=== PATIENT | female | born 1950 | race African-American/Black ===

== ENCOUNTER 2017-08-24 14:51 | Emergency (ER) | payer OTHER ==
[2017-08-24 14:57] VITALS: BP 117/77; PULSE 106; TEMP 98.1; BMI 27.7
[2017-08-24] MEDS ORDERED: IBUPROFEN 600 MG TABLET (FP) PO ONE (15:15)
[2017-08-24] MEDS ORDERED: IBUPROFEN 400 MG TABLET (FP) PO ONE (15:18)
--- NOTE | 2017-08-24 15:37 | PDOC ---
History of Present Illness - General Chief Complaint: Respiratory Stated Complaint: BACK PAIN Time Seen by Provider: 08/24/17 15:01 History Source: Patient Exam Limitations: No Limitations - History of Present Illness Initial Comments: 08/24/17 15:32 67-year-old female presents the ED with complaints of subjective fever for the past 2 days along with cough, headache, sore throat and myalgia. Patient states took nothing for the above except for Motrin which she took this morning at 8 AM. Patient denies recent travel, recent sick contacts, recent illness. Timing/Duration: reports: yesterday Severity: reports: moderate Possible Cause: Yes: no prior episodes Associated Symptoms: reports: cough, fever/chills, headache, muscle aches, sore throat Past History - Travel Traveled outside of the country in the last 30 days: No - Past Medical History Allergies/Adverse Reactions: Allergies Allergy/AdvReac Type Severity Reaction Status Date / Time codeine Allergy Verified 08/24/17 15:21 Home Medications: Ambulatory Orders Aspirin 81 mg PO ASDIR 08/24/17 Omeprazole 20 mg PO ASDIR 08/24/17 propRANOLol HCL [Inderal -] 10 mg PO ASDIR 08/24/17 COPD: No GI Disorders: Yes (GASTRITIES) - Suicide/Smoking/Psychosocial Hx Smoking History: Never smoked Hx Alcohol Use: No Patient Lives Alone: No Lives with/in: niece Review of Systems - Review of Systems Able to Perform ROS?: Yes Constitutional: Yes: Chills, Fever HEENTM: Yes: Throat Pain Respiratory: Yes: Cough Cardiac (ROS): No: Symptoms Reported ABD/GI: No: Symptoms Reported : No: Symptoms Reported Musculoskeletal: Yes: Back Pain, Joint Pain (generalized) Integumentary: No: Symptoms Reported Neurological: Yes: Headache *Physical Exam - Vital Signs Last Vital Signs Temp Pulse Resp BP Pulse Ox 98.1 F 106 H 20 117/77 20 L 08/24/17 14:54 08/24/17 14:54 08/24/17 14:54 08/24/17 14:54 08/24/17 14:54 - Physical Exam General Appearance: Yes: Nourished, Appropriately Dressed. No: Apparent Distress HEENT: positive: EOMI, REINA, TMs Normal, Pharyngeal Erythema (mild). negative: Hearing Decreased Neck: positive: Supple. negative: Lymphadenopathy (R), Lymphadenopathy (L) Respiratory/Chest: positive: Rhonchi (right lower base). negative: Respiratory Distress, Accessory Muscle Use Cardiovascular: positive: Regular Rhythm, Tachycardia. negative: Murmur Gastrointestinal/Abdominal: positive: Soft. negative: Tenderness Extremity: positive: Normal Capillary Refill. negative: Pedal Edema Integumentary: positive: Normal Color, Warm, Moist Neurologic: positive: Motor Strength 5/5 (ambulatory) ED Treatment Course - ADDITIONAL ORDERS Additional order review: 08/24/17 15:15 Group A Strep Rapid Antigen - Final Throat - RADIOLOGY Radiology Studies Ordered: Category Date Time Status CHEST PA & LAT [RAD] Stat Radiology 08/24/17 15:15 Ordered - Medications Given in the ED: ED Medications Discontinued Medications Generic Name Dose Route Start Last Admin Trade Name Freq PRN Reason Stop Dose Admin Ibuprofen 400 mg 08/24/17 15:15 08/24/17 15:20 Motrin - PO 08/24/17 15:16 400 mg ONCE ONE Administration Medical Decision Making - Medical Decision Making 08/24/17 15:34 Patient here for URI complaints. Patient on exam with right lower lobe ronchi concerning for pneumonia. Patient also ordered for rapid strep secondary to pharyngeal erythema and Motrin for myalgia 08/24/17 15:35 X-ray shows right lower lobe consolidation concerning for pneumonia. Patient strep negative. Patient be discharged home with Levaquin. *DC/Admit/Observation/Transfer Diagnosis at time of Disposition: Right lower lobe pneumonia - Discharge Dispostion Disposition: HOME Condition at time of disposition: Good - Referrals Referrals: Mar Lizama MD [Primary Care Provider] - - Patient Instructions Printed Discharge Instructions: DI for Pneumonia -- Adult Additional Instructions: Please take Levaquin as prescribed until completed. May take Tylenol or Motrin for fever and discomfort. Please return to ED if symptoms worsen despite above recommendations. Otherwise up with your primary care physician. - Post Discharge Activity
== END 2017-08-24 15:44 | disposition home or self-care (01) ==
LOC: JERFT 14:51
DX: J18.9 Pneumonia, unspecified organism (principal)
CPT/HCPCS: 71046-TC-FY; 87070; 87077; 87430; 99281-25

== ENCOUNTER → 2022-02-06 | Day surgery (SDC) | payer OTHER | END | disposition home or self-care (01) | LOC: JRADUS-SUR 10:23 | PROVIDERS: ATTEND Surgery | PROC: 0H9T3ZX Drainage of Right Breast, Percutaneous Approach, Diagnostic (ICD-10-PCS; principal; 2022-02-06) | DX: N63.10 Unspecified lump in the right breast, unspecified quadrant (principal); D24.1 Benign neoplasm of right breast | CPT/HCPCS: 19083; 77065-TC; 87899; 88305-TC; A4648 ==

== ENCOUNTER 2022-12-03 04:29 | Day surgery (SDC) | payer OTHER ==
[2022-12-02 09:28] VITALS: BMI 30.2
[2022-12-03 13:58] VITALS: TEMP 97.4
[2022-12-03 14:29] VITALS: BP 139/86; PULSE 73; RESP 17
== END 2022-12-03 14:46 | disposition home or self-care (01) ==
LOC: JASU-ENDO 04:29
PROVIDERS: ATTEND Student in an Organized Health Care Education/Training Program
PROC: 0DB78ZX Excision of Stomach, Pylorus, Via Natural or Artificial Opening Endoscopic, Diagnostic (ICD-10-PCS; 2022-12-03)
PROC: 0DB68ZX Excision of Stomach, Via Natural or Artificial Opening Endoscopic, Diagnostic (ICD-10-PCS; 2022-12-03)
PROC: 0DB48ZX Excision of Esophagogastric Junction, Via Natural or Artificial Opening Endoscopic, Diagnostic (ICD-10-PCS; principal; 2022-12-03 14:00)
DX: K21.00 Gastro-esophageal reflux disease with esophagitis, without bleeding (principal); K29.50 Unspecified chronic gastritis without bleeding; I10 Essential (primary) hypertension; E11.9 Type 2 diabetes mellitus without complications
CPT/HCPCS: 88305-TC; 88342-TC

== ENCOUNTER 2023-07-12 01:52 | Inpatient (IN) | payer OTHER ==
[2023-07-12 02:04] VITALS: BMI 29.2
[2023-07-12] MEDS ORDERED: ASPIRIN 81 MG CHEWABLE TABLETS PO ONE ×2 (02:30→03:43)
[2023-07-12] MEDS ORDERED: FAMOTIDINE 20 MG TABLET PO ONE (02:43)
[2023-07-12] MEDS ORDERED: ACETAMINOPHEN 1000 MG/100 ML BAG IVPB ONE (02:43)
[2023-07-12 02:46] LABS: BASO % 0.7 % (0-2.0); EOS % 0.2 % (0-4.5); HEMATOCRIT 38.5 % (32.4-45.2); HEMOGLOBIN 12.4 GM/dL (10.7-15.3); LYMPH % 42.3 % (8-40); MCHC 32.2 g/dl (32.0-36.0); MEAN CELL VOLUME 80.8 fl (80-96); MEAN PLT VOLUME 7.7 fl (7.5-11.1); MONO % 11.3 % (3.8-10.2); NEUT % 45.5 % (42.8-82.8); PLATELET COUNT 352 10^3/uL (134-434); RBC 4.77 M/mm3 (3.60-5.2); RDW 14.2 % (11.6-15.6); WHITE BLOOD COUNT 4.7 K/mm3 (4.0-10.0)
[2023-07-12] MEDS ORDERED: FAMOTIDINE 20 MG TABLET ONE (02:48)
[2023-07-12] MEDS ORDERED: ACETAMINOPHEN INJECTION 100 ML IVPB ONE (02:48)
[2023-07-12 03:05] LABS: INR 0.99 (0.83-1.09); PROTHROMBIN TIME (PATIENT) 11.5 SEC (9.7-13.0)
[2023-07-12 03:08] LABS: ACTIVATED PTT 26.8 SECONDS (25.2-36.5); CHLORIDE 106 mmol/L (98-107); POTASSIUM 3.9 mmol/L (3.5-5.1); SODIUM 142 mmol/L (136-145)
[2023-07-12 03:10] LABS: BLOOD UREA NITROGEN 26.4 mg/dL (7-18); CALCIUM 9.9 mg/dL (8.5-10.1)
[2023-07-12 03:11] LABS: ALBUMIN 3.5 g/dl (3.4-5.0); ANION GAP 7 mmol/L (4-13); CO2 30 mmol/L (21-32); GLUCOSE,RANDOM 117 mg/dL (74-106); MAGNESIUM 1.9 mg/dL (1.8-2.4)
[2023-07-12 03:14] LABS: CREATININE 0.6 mg/dL (0.55-1.3); SGOT/AST 62 U/L (15-37); SGPT/ALT 43 U/L (13-61)
[2023-07-12 03:15] LABS: BILIRUBIN,TOTAL 0.2 mg/dL (0.2-1); TOT PROT 7.6 g/dl (6.4-8.2)
[2023-07-12 03:17] LABS: ALK PHOS 108 U/L (45-117)
[2023-07-12] MEDS ORDERED: CEFTRIAXONE 1 GM in DEXTROSE 5%-WATER - 100 ML IVPB ONE (03:40)
[2023-07-12] MEDS ORDERED: SODIUM CHLORIDE 0.9% 500 ML INFUS.BAG IV ONE (03:41)
[2023-07-12] MEDS ORDERED: ASPIRIN 81 MG CHEWABLE TABLETS ONE (04:32)
[2023-07-12] MEDS ORDERED: CEFTRIAXONE 1 GM/50 ML BAG ONE (04:32)
[2023-07-12] MEDS ORDERED: ACETAMINOPHEN 325 MG TABLET (FP) PO PRN (06:16)
[2023-07-12] MEDS ORDERED: ATORVASTATIN CA 40 MG TABLET (FP) PO ONE (06:17)
[2023-07-12 07:50] LABS: CHOLESTEROL 157 mg/dL (50-200)
[2023-07-12 07:51] LABS: LDL CHOLESTEROL (ONLY SJRH) 77 mg/dL (5-100)
[2023-07-12] MEDS ORDERED: METOPROLOL TARTRATE 25 MG TABLET (FP) PO ONE (07:52)
[2023-07-12 07:53] LABS: HDL CHOLESTEROL 65 mg/dL (40-60)
[2023-07-12] MEDS ORDERED: CLOPIDOGREL BISULFATE 300 MG TABLET PO ONE (07:53)
[2023-07-12] MEDS ORDERED: HEPARIN NA (PORCINE) 5,000 UNITS/ML 1ML VIAL IVPUSH ONE (07:55)
[2023-07-12] MEDS ORDERED: HEPARIN NA (PORCINE) 5,000 UNITS/ML 1ML VIAL IVPUSH PRN ×2 (07:55)
[2023-07-12] MEDS ORDERED: HEPARIN INFUSION - 25,000 UNITS/500 ML INFUS.BAG IVPB SCH (08:00)
[2023-07-12] MEDS ORDERED: HEPARIN INFUSION - 25,000 UNITS/500 ML INFUS.BAG IVPB ONE (08:33)
[2023-07-12] MEDS ORDERED: HEPARIN NA (PORCINE) 5,000 UNITS/ML 1ML VIAL ONE (08:33)
[2023-07-12] MEDS ORDERED: OSELTAMIVIR PHOSPHATE 75 MG CAPSULE PO SCH (10:00)
[2023-07-12] MEDS ORDERED: METOPROLOL TARTRATE 25 MG TABLET (FP) ONE (10:03)
[2023-07-12] MEDS ORDERED: CLOPIDOGREL BISULFATE 300 MG TABLET ONE (10:04)
[2023-07-12] MEDS ORDERED: ATORVASTATIN CA 40 MG TABLET (FP) ONE (10:04)
[2023-07-12 10:14] VITALS: BP 130/89; PULSE 106; RESP 18
[2023-07-12] MEDS ORDERED: OSELTAMIVIR PHOSPHATE 75 MG CAPSULE ONE (10:24)
[2023-07-12 11:06] VITALS: TEMP 97.9
[2023-07-13] MEDS ORDERED: AZITHROMYCIN IVPB 500 MG/250 ML BAG IVPB SCH (10:00)
[2023-07-13] MEDS ORDERED: CEFTRIAXONE 1 GM in DEXTROSE 5%-WATER - 50 ML IVPB SCH (10:00)
[2023-07-13] MEDS ORDERED: ASPIRIN 81 MG CHEWABLE TABLETS PO SCH (10:00)
[2023-07-13] MEDS ORDERED: ATORVASTATIN CA 40 MG TABLET (FP) PO SCH (22:00)
== END 2023-07-12 11:08 | disposition short-term general hospital (02) | DRG 282 ==
LOC: JER 01:52 → JERBED 05:03
PROVIDERS: ADMIT Internal Medicine; ATTEND Internal Medicine
DX: I21.4 Non-ST elevation (NSTEMI) myocardial infarction (principal); J11.1 Influenza due to unidentified influenza virus with other respiratory manifestations; I10 Essential (primary) hypertension; F17.210 Nicotine dependence, cigarettes, uncomplicated
CPT/HCPCS: 0241U-QW; 36415; 71045-TC-FY; 80053; 80061; 82550; 82962; 83735; 84484; 85025; 85610; 85730; 86850; 86900; 86901; 93005; 93010; 99285-25; J1644

== ENCOUNTER 2024-03-25 13:39 | Emergency (ER) | payer OTHER ==
[2024-03-25 13:48] VITALS: BP 113/75; PULSE 85; RESP 18; TEMP 97.7; BMI 25.8
== END 2024-03-25 16:42 | disposition home or self-care (01) ==
LOC: JER 13:39
DX: M25.461 Effusion, right knee (principal); M25.561 Pain in right knee
CPT/HCPCS: 73562-TC-RT-FY; 93971-TC; 99284-25

== ENCOUNTER 2024-09-03 05:33 | Day surgery (SDC) | payer OTHER ==
[2024-08-30 12:33] VITALS: BMI 24.7
[2024-09-03 11:06] VITALS: RESP 16; TEMP 98.3
[2024-09-03 12:15] VITALS: BP 132/82; PULSE 88
== END 2024-09-03 11:50 | disposition home or self-care (01) ==
LOC: JASU-ENDO 05:33
PROVIDERS: ATTEND Student in an Organized Health Care Education/Training Program
PROC: 0DJD8ZZ Inspection of Lower Intestinal Tract, Via Natural or Artificial Opening Endoscopic (ICD-10-PCS; principal; 2024-09-03 09:30)
DX: Z12.11 Encounter for screening for malignant neoplasm of colon (principal); K64.8 Other hemorrhoids